=== PATIENT | male | born 1965 | race Caucasian/White ===

== ENCOUNTER 2022-02-12 01:35 | Emergency (ER) | payer BC, MEDICAID ==
[2022-02-12 02:18] LABS: CHLORIDE,CL 105 mEq/L (98-106); ESTIMATED GFR > 60 mL/min (>=60); SODIUM,NA 144 mEq/L (136-145)
[2022-02-12 02:27] LABS: AMPHETAMINES,URINE NEGATIVE (NEGATIVE); BARBITURATES,URINE NEGATIVE (NEGATIVE); BENZODIAZEPINE,URINE NEGATIVE (NEGATIVE); MDMA (ECSTASY), URINE NEGATIVE (NEGATIVE); METHADONE,URINE NEGATIVE (NEGATIVE); METHAMPHETAMINES,URINE NEGATIVE (NEGATIVE); OPIATES,URINE NEGATIVE (NEGATIVE); OXYCODONE,URINE NEGATIVE (NEGATIVE); PHENCYCLIDINE,URINE NEGATIVE (NEGATIVE); TCA,URINE NEGATIVE (NEGATIVE)
[2022-02-12 05:48] VITALS: BP 115/83; PULSE 79
== END 2022-02-12 04:20 ==
LOC: CC.ED 01:35
DX: F10.220 Alcohol dependence with intoxication, uncomplicated (principal); Z88.0 Allergy status to penicillin; Z79.899 Other long term (current) drug therapy; Y90.8 Blood alcohol level of 240 mg/100 ml or more
CPT/HCPCS: 36415; 71045; 80053; 80305-QW; 80307; 83735; 84484; 85025; 86140; 93005; 99284; 99285-25